=== PATIENT | male | born 1945 | race Caucasian/White ===

== ENCOUNTER 2020-11-03 09:05 | Day surgery (SDC) | payer MEDICARE ==
--- NOTE | 2020-10-22 10:02 | NUR ---
DOS: 11-03-20 HAS A TOTAL OF 11 STEPS 4 STEPS INTO THE HOME AND 7 STEPS IN THE HOUSE HAS A WALKIN SHOWER HAS KRIS RICKS AND A RISER IF NEEDED HAS A CANE THAT HE IS CURRENTLY USING NEED AN RX FOR A FWW HIS DAUGHTER WILL GET HIM TO HIS PHYSICAL THERAPY AND FOLLOW-UP APPOINTMENTS.
[~2020-11-03] VITALS: Ht 185.4 cm; Wt 100.0 kg
[~2020-11-03 09:05] MED LIST: AMLODIPINE BESY10 MG PO; LOTENSIN20 MG PO; LOTREL 10-20 M1 EACH PO; TRIAMTERENE-HC1 EAC1 PO; ULTRAM50 MG PO
[2020-11-03] MEDS ORDERED: OXYCODONE HCL5 MG PO (13:40)
[2020-11-03] MEDS ORDERED: ASPIRIN EC325 MG PO (13:40)
[2020-11-03] MEDS ORDERED: XARELTO10 MG PO (13:40)
[2020-11-03] MEDS ORDERED: CELECOXIB200 MG PO (13:40)
[2020-11-03] MEDS ORDERED: GABAPENTIN300 MG PO (13:41)
[2020-11-03] MEDS ORDERED: SENNA LAX8.6 MG PO (13:41)
--- NOTE | 2020-11-03 13:55 | NUR ---
11/03/20 1355 Tricia Kaufman 1337 PT TO PACU SLEEPY BUT AROUSABLE JESSICA PAIN OR NAUSEA. SPINAL AT L-2,
--- NOTE | 2020-11-03 14:59 | NUR ---
LE 1430: PT ARRIVES VIA STRETCHER FROM PACU. REPORT RECEIVED AND CARE ASSUMED BY THIS AUTHOR. PT ALERT AND ORIENTED, VSS. ANNABEL HOSE, SCDS AND CRYO CUFF IN PLACE. OPERATIVE LIMB PINK, CAP REFILL <3 SECONDS. PENCIL ERASER SIZED AMOUNT OF RED DRAINAGE NOTED IN THE MIDDLE OF THE DRESSING. PT COMFORTABLE WITHOUT NEEDS OR REQUESTS AT THIS TIME. CALL LIGHT WITHIN REACH
--- NOTE | 2020-11-03 15:32 | NUR ---
PT WAKES WHEN THIS RN ENTERS THE ROOM. ALERT AND ORIENTED, VSS. REPORTS FEELING SLEEPY. DRAINAGE NOTED ON DRESSING REMAINS UNCHANGED. SCDS, ANNABEL HOSE AND CRYO CUFF REMAINS IN PLACE. STRONG PEDAL PULSES, PINK BLE, CAP REFILL <3 SECONDS. CONTS TO TOLERATE PO WITHOUT NAUSEA. COMFORTABLE WITHOUT NEEDS, CALL LIGHT WITHIN REACH
--- NOTE | 2020-11-03 17:07 | NUR ---
KRISTAL 1630: PT OFF OF UNIT AND WORKING WITH PT
--- NOTE | 2020-11-03 17:08 | NUR ---
LE 1650: PT RETURNS FROM WORKING WITH PT. CLEARED FOR D/C. PHYSICAL THERAPIST REPORTS PT HAD SUCCESSFUL POSTOP VOID.
--- NOTE | 2020-11-03 17:46 | NUR ---
LE 1735: D/C INSTRUCTIONS PROVIDED AND DISCUSSED ORDERED. PT VERBALIZES UNDERSTANDING AND DENIES QUESTIONS AT THIS TIME. SL D/C'D WITH CATH TIP IN PLACE AND PRESSURE APPLIED TO SITE. PT DRESSED WITH ASSISTANCE. STEADY GAIT WITH FWW USE. WHEELED OFF OF UNIT BY RN. PT TRANSFERS INDPENDENTLY INTO VEHICLE. RESP EVEN AND UNLABORED. NO PHYSICAL S/S OF DISTRESS AT THIS TIME
--- NOTE | 2020-11-05 08:45 | OR ---
[facility] [address] [place], [place] [address] Signed DATE OF OPERATION: 11/03/2020 SURGEON: Kevin Kaufman MD PREOPERATIVE DIAGNOSIS: DJD, severe right knee. POSTOPERATIVE DIAGNOSIS: DJD, severe right knee. PROCEDURE PERFORMED: Right total knee arthroplasty with Rashaad. ASSEMBLER TYPE BAR AND SEGMENT: Sheila Duff PA-C. ANESTHESIA: Spinal. Sheila was present and critical for all portions of procedure. BLOOD LOSS: 175 mL. TOURNIQUET TIME: Zero. IMPLANTS: Pedro Triathlon, size 8 femur, size 7 tibia, 9 mm polyethylene and 38 mm patella. BRIEF HISTORY: Salbador is a 75-year-old gentleman, who has severe arthritis in both knees and was unable to walk sufficiently. Risks and benefits of operative treatment were discussed with him and he elected to proceed. DESCRIPTION OF PROCEDURE: Once consent was obtained, he was taken to the operating room. After adequate anesthesia, he was placed on the operating table. All downside pressure points were well padded. The right leg was prepped and draped in a standard sterile fashion. The knee was approached through standard anterior incision, carried through skin and subcutaneous tissue. A mid vastus approach was undertaken and taken distally. The MCL was elevated with a sleeve around the posteromedial corner. All bleeders were Electronically Signed By: KEVIN KAUFMAN MD 11/05/20 0845 PATIENT NAME: SALBADOR RIDER OPERATIVE REPORT DATE OF : 43 REPORT #: [id number] PHYSICIAN: KEVIN KAUFMAN MD PCP: NO PRIMARY CARE PHYSICIAN REPORT IS CONFIDENTIAL AND NOT TO BE RELEASED WITHOUT AUTHORIZATION [facility] [address] [place], [place] [address] Signed cauterized as we went. The infrapatellar fat pad was excised. There was extensive thickening and frowning of the synovitis. This was consistent with an inflammatory arthropathy. We did biopsy some of the synovium and sent off to Pathology. The patella was mobilized laterally. The anterior and lateral meniscus and ACL were transected. The medial meniscus was already partially absent. The knee was flexed and the checkpoints were placed in the medial femoral condyle and proximal tibia. The computer ray was also placed in the medial femoral condyle as well as in the proximal tibia one handsbreadth below the tibial tuberosity through separate stab incisions. The leg was then registered with the computer as was the final anatomic points of the knee. Adjustments were made to the prosthesis to balance the soft tissues. Once this was completed, the robot was brought in and the straight cuts were made starting with the tibia and care was taken to protect soft tissue throughout this. The blade was then switched to the angle blade and 2 angle cuts were made and all bone was excised as were the osteophytes. The tibial femoral trials were then positioned after removing osteophytes of the posterior femur. The knee went from 0 to 130 degrees of flexion. There was good stability throughout. The patella was cut sized and drilled for 38 mm patella. Two distal drill holes in the femur were made and the keel punch was used for the tibia. The bone was pulse lavaged and packed with dry Ray-Bernard. The cement was mixed to ensure proper consistency, was placed in the tibia and the patella. The tibia was impacted into position first. All excess cement was removed. The polyethylene was snapped into position. The femur was then impacted. The knee was extended and nicely loaded. The patella was clamped into position and any remaining overflow was removed. The cement was allowed to harden. Once it hardened sufficiently, the knee was flexed and remaining excess cement was removed. The knee was stable throughout and looked good on the computer. The computer rays were then removed. The knee was pulse lavaged with a total of 4 L of normal saline and 100 mL of dilute iodine solution. The On-Q pain pump was placed in the adductor canal from the suprapatellar pouch percutaneously. The arthrotomy was then closed using #2 Stratafix, subcutaneous tissue with #0 Stratafix, and the skin with sherry. Wound was dressed with GODWIN wound VAC dressing and Alphonso wrap. He was awakened, taken to the recovery room in satisfactory condition. All sponge, needle, and instrument counts were correct. Kevin Kaufman MD BA/MODL /[id number] Electronically Signed By: KEVIN KAUFMAN MD 11/05/20 0845 PATIENT NAME: SALBADOR RIDER JR OPERATIVE REPORT DATE OF : 43 REPORT #: [id number] PHYSICIAN: KEVIN KAUFMAN MD PCP: NO PRIMARY CARE PHYSICIAN REPORT IS CONFIDENTIAL AND NOT TO BE RELEASED WITHOUT AUTHORIZATION [address] [address] Signed Copies: ~ Electronically Signed By: KEVIN KAUFMAN MD 11/05/20 0845 PATIENT NAME: SALBADOR RIDER JR OPERATIVE REPORT DATE OF : 43 REPORT #: [id number] PHYSICIAN: KEVIN KAUFMAN MD PCP: NO PRIMARY CARE PHYSICIAN REPORT IS CONFIDENTIAL AND NOT TO BE RELEASED WITHOUT AUTHORIZATION
--- NOTE | 2020-11-05 15:02 | PATH ---
[facility] [address] [facility] [place], [place] [address] Signed SPECIMEN(S): A RIGHT KNEE SYNOVIAL TISSUE SPECIMEN SOURCE: A. RIGHT KNEE SYNOVIAL TISSUE CLINICAL HISTORY: Degenerative joint disease. Right total knee replacement. FINAL PATHOLOGIC DIAGNOSIS: Synovium, right knee, excision: - Chronic synovitis with reactive synovial hyperplasia, vascular congestion, scattered calcifications and bony fragments. - See comment. COMMENT: Sections demonstrate several fragments of synovial tissue with reactive hyperplasia, lymphoplasmacytic inflammation, and scattered lymphoid aggregates. The submembranous tissue demonstrates reactive-appearing fibrosis with myxoid stromal change. Polarizable foreign material is not identified and there is no evidence of malignancy. NAL:[facility]:C2NR MICROSCOPIC EXAMINATION: Histologic sections of all submitted blocks are examined by light microscopy. These findings, together with the gross examination, support the pathologic diagnosis. GROSS DESCRIPTION: The specimen, labeled "HM," and designated on the requisition "right knee hyperactive synovial tissue," is received in formalin and consists of multiple fragments of brown-cardoso soft tissue (2.5 x 2.0 x 0.5 cm in aggregate). The specimen is submitted entirely in cassette (A1). AC (under the direct supervision of a pathologist) The Gross Description was prepared using a voice recognition system. The report was reviewed for accuracy; however, sound-alike word errors, addition and/or deletions may occur. If there is any question about this report, please contact Client Services. PERFORMING LABORATORY: The technical component was performed by [facility], [address] [place] [id number] (Search Director: Shonna Gutierrez MD; CLIA# [id number]). PATIENT NAME: SALBADOR RIDER JR PATHOLOGY DATE OF : 43 REPORT #: [id number] PHYSICIAN: [facility] PCP: NO PRIMARY CARE PHYSICIAN REPORT IS CONFIDENTIAL AND NOT TO BE RELEASED WITHOUT AUTHORIZATION [facility] [address] [place], [place] [address] Signed Professional interpretation was performed by [facility], [address] [address] (CLIA# [id number]). Diagnostician: Elisabeth Goss MD Pathologist Electronically Signed 11/05/2020 Copies: ~ PATIENT NAME: SALBADOR RIDER JR PATHOLOGY DATE OF : 43 REPORT #: [id number] PHYSICIAN: [facility] PCP: NO PRIMARY CARE PHYSICIAN REPORT IS CONFIDENTIAL AND NOT TO BE RELEASED WITHOUT AUTHORIZATION
[2020-11-12] MEDS ORDERED: OXYCODONE HCL5 MG PO (21:37)
== END 2020-11-03 17:35 | disposition home or self-care (01) ==
LOC: DS 09:05
PROVIDERS: ATTEND Specialist
PROC: 0SBC4ZX Excision of Right Knee Joint, Percutaneous Endoscopic Approach, Diagnostic (ICD-10-PCS; principal; 2020-11-03 11:15)
DX: M65.861 Other synovitis and tenosynovitis, right lower leg (principal); M17.12 Unilateral primary osteoarthritis, left knee; I10 Essential (primary) hypertension; Z96.651 Presence of right artificial knee joint
CPT/HCPCS: 01402; 64447; 64450; 76942; 88305; 97110; 97116; 97161; C1713; C1776; J0690; J1100; J1885; J2001; J2250; J2405; J2704; J2795; J7121

== ENCOUNTER 2021-07-31 07:50 | Day surgery (SDC) | payer MEDICARE ==
[~2021-07-31] VITALS: Ht 185.4 cm; Wt 102.0 kg
[~2021-07-31 07:50] MED LIST changes: +ASPIRIN EC325 MG PO; +CELECOXIB200 MG PO; +GABAPENTIN300 MG PO; +OXYCODONE HCL5 MG PO; +SENNA LAX8.6 MG PO; +XARELTO10 MG PO
--- NOTE | 2021-07-31 10:51 | NUR ---
07/31/21 1051 Jahaira Avila 1048 PATIENT ARRIVES TO PACU UNRESONSIVE TO PAIN. RESP EVEN AND UNLABORED, ORAL AIRWAY IN PLACE, MASK AT 10 LITERS.
--- NOTE | 2021-07-31 11:27 | NUR ---
1115-PATIENT BACK TO ROOM FROM PACU ON . RECEIVED REPORT FROM JANICE HEATH. PATIENT IS DROWSY. VSS. PATIENTS DRESSING IS CLEAN, DRY, AND INTACT. ICE PACK IN PLACE. PATIENT DENIES A SNACK AT THIS TIME, STATES HE WOULD LIKE TO REST. PROVIDED WATER TO THE PATIENT. CALL LIGHT WITHIN REACH.
--- NOTE | 2021-07-31 13:22 | OR ---
[facility] [address] [place], [place] [address] Signed DATE OF OPERATION: 07/31/2021 SURGEON: Kika Leija MD PREOPERATIVE DIAGNOSIS: Moderate to large incarcerated left inguinal hernia. POSTOPERATIVE DIAGNOSIS: Moderate to large incarcerated left indirect inguinal hernia. PROCEDURE: Left Sefeirno onlay mesh inguinal herniorrhaphy. ESTIMATED BLOOD LOSS: None. INDICATIONS: Salbador is a 75-year-old gentleman, asked to see me for left inguinal hernia. He recently had his left hip and right knee replaced. He has been through physical therapy. He said it is much better ambulating at this point. However on the x-rays, he is aware that he had a small left inguinal hernia. It was containing some fat. He went to physical therapy he said that increased in size and swelling and pain. He said it is now down into the top of his scrotum. 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 He finally had to go to his primary care provider. He was asked to see me with respect to the above. In the office, he clearly has a moderate to large left inguinal hernia. We could not reduce it even in the supine position. On his x-rays, he seems to have a 1 cm area of calcification in the spermatic cord. He has not had a prior vasectomy, we are not sure why he has or maybe some chronic inflammatory changes. I had given him a booklet on hernias and we had reviewed that in detail. He understands the difference between the primary suture repair and a mesh repair. We reviewed expected intraop and postop course. There is risk including, but not limited to bleeding, infection, scarring, change in contour of the skin, damage to the nerves, ischemic orchitis, recurrent hernias and chronic pain. He had expressed understanding and wished to proceed. DESCRIPTION OF PROCEDURE: I met with Salbador and his daughter Ivy in our preop area. We all agreed on the left groin and we marked that appropriately. After this, Salbador was taken in the operating room and placed in a supine position under general endotracheal tube anesthesia. In our preop area, our nurse insole presser had placed an inguinal nerve Electronically Signed By: KIKA LEIJA MD 07/31/21 1322 PATIENT NAME: SALBADOR RIDER JR OPERATIVE REPORT DATE OF : 43 REPORT #: [id number] PHYSICIAN: KIKA LEIJA MD PCP: KEVIN HAYES MD REPORT IS CONFIDENTIAL AND NOT TO BE RELEASED WITHOUT AUTHORIZATION [facility] [address] [place], [place] [address] Signed block. Salbador was given preoperative antibiotics along with subcutaneous heparin. SCDs were utilized. He was then prepped and draped in the usual sterile fashion. A standard oblique incision was made in the left groin and carried down to the tissue bluntly and with the cautery. The external oblique fascia was opened along its length and developed medially and laterally. We were able to visualize and protect the iliohypogastric and ilioinguinal nerves. He had a large hernia sac coming out of the deep ring to pass the pubic tubercle. The direct space was less involved. It actually took a minute even intraoperatively to reduce the contents of the hernia sac. When we opened the hernia sac, we could see indeed it is a sliding inguinal hernia containing partly the sigmoid colon. We took the sigmoid colon down just a bit to place it back inside the abdomen. We had the hernia sac from the surrounding cord structures. We felt up and down the cord structures soft tissues and never could find any indurated firm calcified type material that was evident on the x-ray. We then closed the hernia sac at the deep ring with 2-0 PDS pursestring suture. The distal portion of the hernia sac was amputated and passed off the field. That hernia sac was actually quite thickened and indurated and I suspect it has been there for quite some time. The deep ring was a bit patulous and we looked at the conjoined tendon with the help of Allis clamps with the idea, we might bring the conjoined tendon all the way over to the ilioinguinal ligament. However, there was far too much tension and it was going to require a rather significant relaxing incision. We opted against that on this occasion and decided to proceed with a standard onlay mesh repair. The mesh was cut to fit his groin and a slit was made in the mesh to accommodate the cord structures at the level of deep ring. The mesh covered the direct and indirect spaces quite nicely. After this, the wound was irrigated and suctioned out until clear. We closed the external oblique over the repair with the help of a running 2-0 PDS suture. Martin's fascia was reapproximated with a running 3-0 Monocryl suture. The dermis was reapproximated with interrupted 3-0 Monocryl sutures. The skin edges were reapproximated with a running 5-0 fast absorbing plain gut suture. Dry gauze and tape were then applied. After this, Salbador was awakened from his anesthesia, extubated in the OR, and taken to the recovery room in stable condition. Kika Leija MD ALB/MODL /[id number] Electronically Signed By: KIKA LEIJA MD 07/31/21 1322 PATIENT NAME: SALBADOR RIDER JR OPERATIVE REPORT DATE OF : 43 REPORT #: [id number] PHYSICIAN: KIKA LEIJA MD PCP: KEVIN HAYES MD REPORT IS CONFIDENTIAL AND NOT TO BE RELEASED WITHOUT AUTHORIZATION [address] [address] Signed cc: MD Kika Thomas MD Copies: KIKA LEIJA MD ~ Electronically Signed By: KIKA LEIJA MD 07/31/21 1322 PATIENT NAME: SALBADOR RIDER JR OPERATIVE REPORT DATE OF : 43 REPORT #: [id number] PHYSICIAN: KIKA LEIJA MD PCP: KEVIN HAYES MD REPORT IS CONFIDENTIAL AND NOT TO BE RELEASED WITHOUT AUTHORIZATION
--- NOTE | 2021-07-31 13:25 | NUR ---
1310-PROVIDED PATIENT WITH DISCHARGE INSTRUCTIONS. PATIENT VERBALIZED UNDERSTANDING AND ALL QUESTIONS ANSWERED. RATES PAIN 2-3/10. PATIENT IS WAITING ON HIS DAUGHTER FOR A RIDE. 1320-PATIENT AMBULATED TO WHEELCHAIR AND THEN PROVIDED HIM A RIDE TO THE FRONT OF HOSPITAL WHERE HID DAUGHTER WAS WAITING WITH THE CAR,
== END 2021-07-31 13:10 | disposition home or self-care (01) ==
LOC: DS 07:50
PROVIDERS: ATTEND Colon & Rectal Surgery
PROC: 0YU60JZ Supplement Left Inguinal Region with Synthetic Substitute, Open Approach (ICD-10-PCS; principal; 2021-07-31 09:35)
DX: K40.30 Unilateral inguinal hernia, with obstruction, without gangrene, not specified as recurrent (principal); I10 Essential (primary) hypertension; Z88.8 Allergy status to other drugs, medicaments and biological substances
CPT/HCPCS: 00830; 64447; 64450; 76942; C1781; J0690; J1100; J1644; J1885; J2001; J2250; J2370; J2405; J2704; J2795; J3010; J7121